=== PATIENT | male | born 1945 | race Caucasian/White ===

== ENCOUNTER 2016-11-17 13:38 | Emergency (ER) | payer OTHER, MEDICARE ==
[2016-11-17 13:52] VITALS: BP 110/77; PULSE 73; TEMP 98; BMI 25.8
[2016-11-17] MEDS ORDERED: KETOROLAC TROMETHAMINE 30 MG/1 ML VIAL IM STA (14:31)
--- NOTE | 2016-11-17 14:44 | PDOC ---
History of Present Illness - General Chief Complaint: Pain Stated Complaint: BACK PAIN Time Seen by Provider: 11/17/16 14:12 History Source: Patient Exam Limitations: No Limitations - History of Present Illness Initial Comments: 11/17/16 14:32 71 yr male with low back pain radiates across lower back for one week. Denies fever or chills, no abd pain or nvd. Pt has history of pancreatitis, sciatica, laminectomy. Pt states pain is worse with sitting down. Pt denies saddle anesthesia, neg bowel or bladder dysfunction, however pt reports constant urinary burning for years dx with BPH not on meds. 11/17/16 14:51 Severity: reports: moderate Pain Location: reports: back Method of Injury: Yes: unknown Loss of Consciousness: no loss of consciousness Associated Symptoms (Fall): denies symptoms Past History - Past Medical History Allergies/Adverse Reactions: Allergies Allergy/AdvReac Type Severity Reaction Status Date / Time No Known Allergies Allergy Verified 11/17/16 13:49 Home Medications: Ambulatory Orders Unobtainable [Unobtainable] 11/17/16 GI Disorders: Yes (rectal prolapse, ) HTN: Yes Hypercholesterolemia: Yes Other medical history: bph,back problems - Psycho/Social/Smoking Cessation Hx Anxiety: No Suicidal Ideation: No Smoking History: Former smoker Have you smoked in the past 12 months: No Information on smoking cessation initiated: No Hx Alcohol Use: No Drug/Substance Use Hx: No Substance Use Type: None Trauma Specific PMHX - Complaint Specific PMHX Arthritis: No Back Injury: No Neck Injury: No Hx Sacro Iliac Joint Dysfunction: No Review of Systems - Review of Systems Able to Perform ROS?: Yes Is the patient limited Lao proficient: No Constitutional: No: Symptoms Reported HEENTM: No: Symptoms Reported Respiratory: No: Symptoms reported Cardiac (ROS): No: Symptoms Reported ABD/GI: No: Symptoms Reported : No: Symptoms Reported Musculoskeletal: Yes: Symptoms Reported, See HPI *Physical Exam - Vital Signs Last Vital Signs Temp Pulse Resp BP Pulse Ox 98.0 F 73 18 110/77 100 11/17/16 13:50 11/17/16 13:50 11/17/16 13:50 11/17/16 13:50 11/17/16 13:50 - Physical Exam General Appearance: Yes: Nourished, Appropriately Dressed HEENT: positive: EOMI, ROSA, TMs Normal Neck: positive: Supple. negative: Tender Respiratory/Chest: positive: Lungs Clear, Normal Breath Sounds. negative: Chest Tender Cardiovascular: positive: Regular Rhythm, Regular Rate Gastrointestinal/Abdominal: positive: Normal Bowel Sounds, Soft. negative: Tender Lymphatic: negative: Adenopathy Musculoskeletal: positive: Normal Inspection. negative: Muscle Spasm, Vertebral Tenderness (well healed laminectomy scar , no rash no vetebral tenderness) Extremity: positive: Normal Capillary Refill, Normal Inspection, Normal Range of Motion Integumentary: positive: Normal Color, Dry, Warm Neurologic: positive: Fully Oriented, Alert, Normal Mood/Affect, Normal Response , Motor Strength 01/23 ED Treatment Course - LABORATORY CBC & Chemistry Diagram: 11/17/16 15:01 11/17/16 16:00 Medical Decision Making - Medical Decision Making 11/17/16 14:53 cc: low back pain for one week denies injury denies radiation no abd pain , neg cough or fever, neg nvd will check labs, urine, toradol for pain . Pt is ambulatory no acute distress. 11/17/16 15:04 11/17/16 16:27 chemistry is pending. Pt states the pain is not relieved with toradol, is requesting a prescription for pain meds to be sent to the [facility] in the [place]. I have discussed that we do not have access to e prescribe to that pharmacy. Pt has refused another pharmacy at this time. Pt drove here, will not be giving narcotic in ER. Labs pending which will possible determine if imaging is to be ordered. 11/17/16 16:42 11/17/16 16:43 pt refused cat scan. Pt states he will follow with his doctor at the [facility] tomorrow. Pt has steady gait vitals stable no distress. Pt states he was hoping he could get an epidural. 11/17/16 16:44 11/17/16 16:54 11/17/16 16:54 *DC/Admit/Observation/Transfer Diagnosis at time of Disposition: Low back pain Qualifiers: Chronicity: chronic Back pain laterality: right Sciatica presence: without sciatica Qualified Code(s): M54.5 - Low back pain; G89.29 - Other chronic pain - Discharge Dispostion Disposition: HOME Condition at time of disposition: Good - Referrals Referrals: Pepe Sellers MD [Staff Physician] - - Patient Instructions Additional Instructions: apply ice every 2hrs for 20 minutes for 2 days [facility] take ibuprofen 800mg every 6hrs for pain (over the counter advil, motrin or ibuprofen )
[2016-11-17] MEDS ORDERED: KETOROLAC TROMETHAMINE 30 MG/1 ML VIAL ONE (14:48)
[2016-11-17 15:29] LABS: URINE APPEARANCE CLEAR; URINE BILIRUBIN NEGATIVE (NEGATIVE); URINE BLOOD NEGATIVE (NEGATIVE); URINE COLOR STRAW; URINE GLUCOSE (UA) NEGATIVE (NEGATIVE); URINE KETONE NEGATIVE (NEGATIVE); URINE LEUK ESTERASE NEGATIVE (NEGATIVE); URINE NITRITE NEGATIVE (NEGATIVE); URINE PROTEIN NEGATIVE (NEGATIVE); URINE UROBILINOGEN NEGATIVE E.U./dl (0.2-1.0)
[2016-11-17 15:33] LABS: MCHC 34.4 g/dl (32.0-35.9); MEAN CELL VOLUME 90.1 fl (80-96); MEAN PLT VOLUME 9.1 fl (7.5-11.1); PLATELET COUNT 193 K/MM3 (134-434); RDW 13.1 % (11.9-15.9); WHITE BLOOD COUNT 5.2 K/mm3 (4.0-10.0)
[2016-11-17 16:41] LABS: ALBUMIN 3.7 g/dl (3.4-5.0); AMYLASE 60 U/L (25-115); ANION GAP 6 (8-16); CO2 32 mmol/L (21-32); GLUCOSE,RANDOM 88 mg/dL (74-106); SGOT/AST 18 U/L (15-37)
[2016-11-17 16:44] LABS: ALK PHOS 73 U/L (45-117); BILIRUBIN,TOTAL 0.4 mg/dL (0.2-1.0); SGPT/ALT 27 U/L (12-78); TOT PROT 6.9 g/dl (6.4-8.2)
== END 2016-11-17 16:59 | disposition home or self-care (01) ==
LOC: JERFT 13:38
PROC: 3E0233Z Introduction of Anti-inflammatory into Muscle, Percutaneous Approach (ICD-10-PCS; principal; 2016-11-17)
DX: M54.5 Low back pain (principal); G89.29 Other chronic pain; I10 Essential (primary) hypertension; E78.00 Pure hypercholesterolemia, unspecified; N40.0 Benign prostatic hyperplasia without lower urinary tract symptoms
CPT/HCPCS: 36415; 80053; 81003; 82150; 83690; 85027; 96372; 99281-25

== ENCOUNTER 2018-07-21 07:05 | Day surgery (SDC) | payer OTHER, MEDICARE ==
[2018-07-19 16:40] VITALS: BMI 24.6
[2018-07-21] MEDS ORDERED: ROPIVACAINE HCL 0.5% 30ML VIAL ONE (07:57)
[2018-07-21] MEDS ORDERED: MIDAZOLAM HCL 2 MG/2 ML SINGLE DOSE VIAL ONE ×2 (08:33)
[2018-07-21] MEDS ORDERED: DEXAMETHASONE SOD PHOSPHATE/PF 10 MG/ML SDV ONE (08:47)
--- NOTE | 2018-07-21 09:13 | HP ---
Satellite [facility] - Chief Complaint Chief Complaint: left shoulder pain History of Present Illness: left shoulder pain, impingement, labral tear History Source: Patient Limitations to Obtaining History: No Limitations - Past Medical History Allergies/Adverse Reactions: Allergies Allergy/AdvReac Type Severity Reaction Status Date / Time No Known Allergies Allergy Verified 07/19/18 16:22 - Current Medications Current Medications: Home Medications Medication Instructions Recorded Amlodipine Besylate [Norvasc -] 2.5 mg PO DAILY 07/19/18 Atenolol/Chlorthalidone 0.5 each PO DAILY 07/19/18 [Atenolol-Chlorthalidone 50-25] Atorvastatin Ca [Lipitor] 40 mg PO HS 07/19/18 Lactulose 10 gm PO BID 07/19/18 Omeprazole 20 mg PO DAILY 07/19/18 Polyethylene Glycol 3350 [Miralax 17 gm PO BID 07/19/18 (For Daily Use) -] Tamsulosin HCl [Flomax] 0.4 mg PO DAILY 07/19/18 Satellite Physical Exam - Physical Examination Vital Signs: Vital Signs Period Temp Pulse Resp BP Sys/Abad Pulse Ox Last 24 Hr 97.6 F 57 124/72 99 General Appearance: Well Nourished ENT: Clear Lung: Clear to auscultation Heart: Regular rate & rhythm Breasts: Soft Abdomen: Soft Extremities: No edema Satellite Impression/Plan - Impression/Plan Impression: left shoulder impingement, labral tear Operative Procedure: left shoulder arthroscopy, decomression, labral repair Date to be Performed: 07/21/18
[2018-07-21] MEDS ORDERED: DESFLURANE GAS 240 ML BOTTLE IH ONE (09:16)
[2018-07-21] MEDS ORDERED: PROPOFOL 20 ML ONE (09:19)
[2018-07-21] MEDS ORDERED: ceFAZolin SODIUM 1 GM VIAL ONE ×2 (09:20)
[2018-07-21] MEDS ORDERED: DEXAMETHASONE SOD PHOSPHATE 4 MG/1 ML VIAL ONE (09:20)
[2018-07-21] MEDS ORDERED: oxyCODONE HCL 5 MG TABLET PO PRN ×2 (09:48)
[2018-07-21] MEDS ORDERED: ONDANSETRON 4 MG/2 ML VIAL IVPUSH PRN (09:48)
[2018-07-21] MEDS ORDERED: LACTATED RINGERS SOLUTION 1,000 ML IV SCH (10:00)
[2018-07-21] MEDS ORDERED: ePHEDrine SULFATE 50 MG/1 ML AMPULE ONE (10:47)
--- NOTE | 2018-07-21 11:27 | OP ---
Operative Note - Note: Operative Date: 07/21/18 Pre-Operative Diagnosis: left shoulder pain, subacromial impingement, ACJ OA, labral tear Operation: left shoulder arthroscopy, subacromial decompression, distal clavicle excision, labral debridment, biceps tenolysis Post-Operative Diagnosis: Same as Pre-op Surgeon: Pepe Sellers General Engineering Teacher: Avi Knight Anesthesiologist/MAT REPAIRER: Citlalli Bowman Anesthesia: General, Local Specimens Removed: shavings Estimated Blood Loss (mls): 20 Drains, Volume Out (mls): 0 Blood Volume Replaced (mls): 0 Fluid Volume Replaced (mls): 700 Operative Report Dictated: Yes
--- NOTE | 2018-07-21 12:01 | OP ---
DATE OF OPERATION: 07/21/2018 PREOPERATIVE DIAGNOSIS: Left shoulder pain and subacromial impingement, possible labral tear. POSTOPERATIVE DIAGNOSIS: Left shoulder subacromial impingement, labral degenerative type tear, and high grade partial biceps tendon tear, acromioclavicular joint arthritis. PROCEDURE: Left shoulder arthroscopy, subacromial decompression, distal clavicle excision, and biceps tenolysis. SURGEON: Ana Luisa Almanza MD SOCIAL WORKER PALLIATIVE CARE: JAX Christensen ADVISORY APPLICATION DEVELOPER: Violette Santos CRNA ANESTHESIA: LMA anesthesia with left interscalene block. DRAINS: None. COMPLICATIONS: None. BLOOD LOSS: Minimal. BLOOD GIVEN: None. FLUID REPLACEMENT: 700 mL. SPECIMENS: Arthroscopic shavings. DESCRIPTION OF PROCEDURE: This patient is a 73-year-old male with a preoperative diagnosis of a left shoulder pain, subacromial impingement, possible rotator cuff tear, possible labral tear. After understanding the potential risks, complications, alternatives and benefits of surgery versus nonsurgical treatment, the patient elected to undergo this procedure. Patient was brought to the operating room, peripheral IV placed, and IV sedation given. One gram of IV Ancef was given. Left interscalene block was performed. LMA anesthesia was induced. He was placed in the beach-chair position with ample padding throughout. The left upper extremity was prepped and draped in sterile fashion. The bony landmarks were marked out with a marking pen. Posterior portal was established. A diagnostic glenohumeral arthroscopy was performed. Patient was seen to have a tremendous amount of degenerative type fraying of the labrum and the biceps tendon. The anterior portal was established, and under direct visualization, the spinal needle and the Green cannula were introduced into the glenohumeral joint, and a shaver was used to debride the torn portion of the biceps tendon and the frayed labrum. Once this was done, this revealed that about 80% of the biceps tendon was torn and the rest frayed. Therefore, biceps tenolysis was performed with the ArthroCare Wand and the shaver. Once the release of the biceps tendon was done, the labrum was extensively probed. It was just degenerative. There was no yonathan tear. Therefore, this area was debrided, as well, cleaned out with the ArthroCare Wand. The glenohumeral joint itself looked good. There was no osteoarthritis. The undersurface of the rotator cuff looked perfect. There was no tear. Next, our attention was turned to subacromial space. Patient had a tremendous amount of inflammatory bursitis. Lateral portal was established under direct visualization. A soft tissue bursectomy was performed / extensive debridement performed with an ArthroCare Wand and a straight shaver. This revealed a very large, bony subacromial spur and a moderate-sized distal subclavicular spur. Both spurs were taken down with a 5.5-mm oval bur and fine-tuned in reverse and cleaned up with the shaver. All soft tissue and bony debris were removed. Photographs were taken of the decompression. It was quite adequate. The arm was put through a full range of motion. There was no point of impingement. The top surface of the rotator cuff was directly visualized. There was no tear. The area was copiously irrigated and washed out. All instrumentation and debris and excess saline were removed. The arthroscopy portals were closed with 3-0 nylon sutures. The area was then washed and dried, covered with Aquacel dressing. Patient was extubated. Total operative repair was about 50 minutes. He was put into a sling and brought down out of the beach-chair position. He was stable throughout the case, and he was brought to the ambulatory recovery room in stable condition. ANA LUISA ALMANZA M.D. [id number]
[2018-07-21 13:55] VITALS: BP 115/67; PULSE 68; TEMP 97.3
--- NOTE | 2018-07-22 17:01 | PATH ---
Surgical Pathology Report Patient Name: JUSTINO YADAV Med. Rec. #: [id number] /Age/Gender: 1945 (Age: 73) / M Account: [id number] Location: [facility] SUR[facility] Taken: 07/21/2018 Received: 07/21/2018 Reported: 07/22/2018 Physicians: Pepe Sellers M.D. Specimen(s) Received LEFT SHOULDER SHAVINGS Clinical History Left shoulder tear Final Diagnosis LEFT SHOULDER SHAVINGS: FRAGMENTS OF SYNOVIAL AND FIBROCARTILAGINOUS TISSUE WITH DEGENERATIVE CHANGE. SEPARATE SKELETAL MUSCLE WITH NO DIAGNOSTIC ABNORMALITIES. Electronically Signed Ministerio Reynoso M.D. Gross Description Received in formalin labeled "left shoulder shavings," is a 2.5 x 2.0 x 0.3 cm aggregate of jay-yellow soft tissue fragments. Hyperion Analyst tissue is submitted in one cassette.
== END 2018-07-21 13:45 | disposition home or self-care (01) ==
LOC: JASU-SURG 07:05
PROVIDERS: ATTEND Orthopaedic Surgery
PROC: 0LN24ZZ Release Left Shoulder Tendon, Percutaneous Endoscopic Approach (ICD-10-PCS; 2018-07-21)
PROC: 0RBK4ZZ Excision of Left Shoulder Joint, Percutaneous Endoscopic Approach (ICD-10-PCS; principal; 2018-07-21 09:00)
PROC: 0PBB4ZZ Excision of Left Clavicle, Percutaneous Endoscopic Approach (ICD-10-PCS; 2018-07-21 09:00)
DX: M75.42 Impingement syndrome of left shoulder (principal); S43.492A Other sprain of left shoulder joint, initial encounter; S46.212A Strain of muscle, fascia and tendon of other parts of biceps, left arm, initial encounter; X58.XXXA Exposure to other specified factors, initial encounter; Y93.9 Activity, unspecified; Y92.9 Unspecified place or not applicable; Y99.9 Unspecified external cause status; M13.812 Other specified arthritis, left shoulder
CPT/HCPCS: 94760

== ENCOUNTER 2021-06-26 08:25 | Emergency (ER) | payer OTHER, MEDICARE ==
[2021-06-26 08:39] VITALS: BMI 27.4
[2021-06-26 10:06] LABS: EPI CELLS 2 /uL (0-25.1); HYALINE CASTS 1 /uL (0-3.1); URINE APPEARANCE CLOUDY; URINE BACTERIA 4 /uL (0-1359); URINE BILIRUBIN NEGATIVE (NEGATIVE); URINE COLOR YELLOW; URINE GLUCOSE (UA) NEGATIVE (NEGATIVE); URINE KETONE NEGATIVE (NEGATIVE); URINE LEUK ESTERASE 1+ (NEGATIVE); URINE NITRITE NEGATIVE (NEGATIVE); URINE PROTEIN 1+ (NEGATIVE); URINE RBC 31 /uL (0-23.9); URINE UROBILINOGEN 0.2 mg/dL (0.2-1.0); URINE WBC 41 /uL (0-25.8)
[2021-06-26 10:57] LABS: BASO % 1.5 % (0-2.0); EOS % 5.9 % (0-4.5); HEMATOCRIT 44.6 % (35.4-49); HEMOGLOBIN 15.1 GM/dL (11.7-16.9); LYMPH % 15.8 % (8-40); MCH 30.6 pg (25.7-33.7); MCHC 33.7 g/dl (32.0-35.9); MEAN CELL VOLUME 90.8 fl (80-96); MEAN PLT VOLUME 9.2 fl (7.5-11.1); MONO % 9.5 % (3.8-10.2); NEUT % 67.3 % (42.8-82.8); PLATELET COUNT 195 10^3/uL (134-434); RBC 4.91 M/mm3 (4.00-5.60); RDW 13.3 % (11.9-15.9); WHITE BLOOD COUNT 4.9 K/mm3 (4.0-10.0)
[2021-06-26 11:03] LABS: CALCIUM 9.4 mg/dL (8.5-10.1)
[2021-06-26 11:04] LABS: ALBUMIN 4.3 g/dl (3.4-5.0); BLOOD UREA NITROGEN 17.2 mg/dL (7-18)
[2021-06-26 11:07] LABS: CREATININE 0.9 mg/dL (0.55-1.3)
[2021-06-26 11:09] LABS: BILIRUBIN,TOTAL 0.6 mg/dL (0.2-1); TOT PROT 7.7 g/dl (6.4-8.2)
[2021-06-26 12:51] VITALS: BP 149/87; PULSE 60; TEMP 98.2
[2021-06-26] MEDS ORDERED: SULFAMETHOXAZOLE/TRIMETHOPRIM 800MG/160MG D.S. TABLET PO ONE (13:39)
[2021-06-26] MEDS ORDERED: SULFAMETHOXAZOLE/TRIMETHOPRIM 800MG/160MG D.S. TABLET ONE (14:14)
== END 2021-06-26 14:40 | disposition home or self-care (01) ==
LOC: JER 08:25
DX: N30.01 Acute cystitis with hematuria (principal)
CPT/HCPCS: 36415; 74176-TC; 80053; 81003; 84153; 85025; 87086; 99284-25

== ENCOUNTER 2021-07-06 03:16 | Emergency (ER) | payer OTHER, MEDICARE ==
[2021-07-06 03:38] VITALS: BMI 22.8
[2021-07-06] MEDS ORDERED: LACTATED RINGERS SOLUTION 1000 ML INFUS.BAG IV ONE (03:42)
[2021-07-06] MEDS ORDERED: FAMOTIDINE 20 MG/50 ML IVPB 20 MG/50 ML MG IVPB ONE ×2 (03:42→03:46)
[2021-07-06] MEDS ORDERED: ONDANSETRON 4 MG/2 ML VIAL IVPUSH ONE (03:42)
[2021-07-06] MEDS ORDERED: ACETAMINOPHEN 1000 MG/100 ML VIAL IVPB ONE (03:42)
[2021-07-06] MEDS ORDERED: ONDANSETRON 4 MG/2 ML VIAL ONE (03:46)
[2021-07-06] MEDS ORDERED: ACETAMINOPHEN INJECTION 100 ML IVPB ONE (03:46)
[2021-07-06 04:02] LABS: BASO % 1.4 % (0-2.0); EOS % 7.3 % (0-4.5); HEMATOCRIT 39.5 % (35.4-49); HEMOGLOBIN 13.4 GM/dL (11.7-16.9); LYMPH % 25.2 % (8-40); MCH 30.4 pg (25.7-33.7); MCHC 33.8 g/dl (32.0-35.9); MEAN CELL VOLUME 89.9 fl (80-96); MONO % 11.7 % (3.8-10.2); NEUT % 54.4 % (42.8-82.8); PLATELET COUNT 186 10^3/uL (134-434); RBC 4.39 M/mm3 (4.00-5.60); RDW 13.3 % (11.9-15.9); WHITE BLOOD COUNT 4.4 K/mm3 (4.0-10.0)
[2021-07-06 04:27] LABS: BLOOD UREA NITROGEN 16.5 mg/dL (7-18); CALCIUM 8.7 mg/dL (8.5-10.1); CO2 22 mmol/L (21-32); GLUCOSE,RANDOM 83 mg/dL (74-106); LIPASE 160 U/L (73-393)
[2021-07-06 04:29] LABS: CREATININE 1.2 mg/dL (0.55-1.3); SGOT/AST 23 U/L (15-37); SGPT/ALT 21 U/L (13-61)
[2021-07-06 04:32] LABS: BILIRUBIN,TOTAL 0.5 mg/dL (0.2-1); TOT PROT 6.6 g/dl (6.4-8.2)
[2021-07-06 04:33] LABS: ALK PHOS 68 U/L (45-117)
[2021-07-06 05:07] LABS: ALBUMIN 3.4 g/dl (3.4-5.0); ANION GAP 9 MMOL/L (8-16); CHLORIDE 107 mmol/L (98-107); SODIUM 138 mmol/L (136-145)
[2021-07-06 05:44] VITALS: BP 125/72; PULSE 64; TEMP 97.9
[2021-07-06 06:01] LABS: EPI CELLS 0 /uL (0-25.1); HYALINE CASTS 0 /uL (0-3.1); PH,URINE 7.5 (5.0-8.0); URINE APPEARANCE CLEAR; URINE BACTERIA 17 /uL (0-1359); URINE BILIRUBIN NEGATIVE (NEGATIVE); URINE COLOR YELLOW; URINE GLUCOSE (UA) NEGATIVE (NEGATIVE); URINE KETONE NEGATIVE (NEGATIVE); URINE LEUK ESTERASE TRACE (NEGATIVE); URINE NITRITE NEGATIVE (NEGATIVE); URINE PROTEIN NEGATIVE (NEGATIVE); URINE RBC 3 /uL (0-23.9); URINE UROBILINOGEN 0.2 mg/dL (0.2-1.0); URINE WBC 12 /uL (0-25.8)
== END 2021-07-06 06:50 | disposition home or self-care (01) ==
LOC: JER 03:16
PROC: 3E0333Z Introduction of Anti-inflammatory into Peripheral Vein, Percutaneous Approach (ICD-10-PCS; principal; 2021-07-06)
PROC: 3E033GC Introduction of Other Therapeutic Substance into Peripheral Vein, Percutaneous Approach (ICD-10-PCS; 2021-07-06)
PROC: 3E033GC Introduction of Other Therapeutic Substance into Peripheral Vein, Percutaneous Approach (ICD-10-PCS; 2021-07-06)
DX: R10.84 Generalized abdominal pain (principal)
CPT/HCPCS: 36415; 71046-TC-FY; 80053; 81003; 82550; 82553; 83690; 84484; 85025; 87086; 93005; 93010; 99285-25; J0131

== ENCOUNTER 2021-10-24 05:13 | Emergency (ER) | payer OTHER, MEDICARE ==
[2021-10-24 05:31] VITALS: BP 152/98; PULSE 80; TEMP 98.4; BMI 25.8
== END 2021-10-24 06:32 | disposition home or self-care (01) ==
LOC: JER 05:13
DX: R09.81 Nasal congestion (principal); Z11.52 Encounter for screening for COVID-19
CPT/HCPCS: 99283-25; C9803; U0003; U0005

== ENCOUNTER 2022-05-10 04:29 | Emergency (ER) | payer OTHER, MEDICARE ==
[2022-05-10 04:48] VITALS: BP 131/87; PULSE 67; RESP 16; TEMP 98.3; BMI 28.6
[2022-05-10] MEDS ORDERED: MAG HYDROX/AL HYDROX/SIMETH -MYLANTA- ORAL SUSPENSION PO ONE (04:59)
[2022-05-10] MEDS ORDERED: ACETAMINOPHEN 1000 MG/100 ML BAG IVPB ONE (04:59)
[2022-05-10] MEDS ORDERED: FAMOTIDINE 20 MG/50 ML IVPB 20 MG/50 ML MG IVPB ONE ×2 (04:59→05:18)
[2022-05-10] MEDS ORDERED: LACTATED RINGERS SOLUTION 1000 ML INFUS.BAG IV ONE (04:59)
[2022-05-10] MEDS ORDERED: MAG HYDROX/AL HYDROX/SIMETH 30 ML UNIT-DOSE CUP ONE (05:17)
[2022-05-10 05:58] LABS: BASO % 0.9 % (0-2.0); EOS % 7.5 % (0-4.5); HEMATOCRIT 41.1 % (35.4-49); HEMOGLOBIN 13.6 GM/dL (11.7-16.9); LYMPH % 16.7 % (8-40); MCHC 33.1 g/dl (32.0-35.9); MEAN CELL VOLUME 90.6 fl (80-96); MEAN PLT VOLUME 10.2 fl (7.5-11.1); MONO % 10.2 % (3.8-10.2); NEUT % 64.7 % (42.8-82.8); PLATELET COUNT 138 10^3/uL (134-434); RBC 4.53 M/mm3 (4.00-5.60); RDW 14.1 % (11.9-15.9); WHITE BLOOD COUNT 4.8 K/mm3 (4.0-10.0)
[2022-05-10 06:41] LABS: PH,URINE 6.5 (5.0-8.0); URINE APPEARANCE CLEAR; URINE BILIRUBIN NEGATIVE (NEGATIVE); URINE COLOR YELLOW; URINE GLUCOSE (UA) NEGATIVE (NEGATIVE); URINE KETONE NEGATIVE (NEGATIVE); URINE LEUK ESTERASE NEGATIVE (NEGATIVE); URINE NITRITE NEGATIVE (NEGATIVE); URINE PROTEIN TRACE (NEGATIVE); URINE UROBILINOGEN 0.2 mg/dL (0.2-1.0)
[2022-05-10 08:33] LABS: ALBUMIN 3.3 g/dl (3.4-5.0); BLOOD UREA NITROGEN 17.8 mg/dL (7-18); CALCIUM 8.6 mg/dL (8.5-10.1)
[2022-05-10 08:36] LABS: CREATININE 0.9 mg/dL (0.55-1.3)
[2022-05-10 08:38] LABS: BILIRUBIN,TOTAL 0.7 mg/dL (0.2-1); TOT PROT 5.7 g/dl (6.4-8.2)
== END 2022-05-10 09:27 | disposition home or self-care (01) ==
LOC: JER 04:29
PROC: 3E033GC Introduction of Other Therapeutic Substance into Peripheral Vein, Percutaneous Approach (ICD-10-PCS; principal; 2022-05-10)
DX: R10.9 Unspecified abdominal pain (principal); M54.50 Low back pain, unspecified
CPT/HCPCS: 0241U-QW; 36415; 71045-TC-FY; 80053; 81003; 83605; 83690; 84484; 85025; 87086; 93005; 93010; 99285-25

== ENCOUNTER 2022-05-16 05:03 | Emergency (ER) | payer OTHER, MEDICARE ==
[2022-05-16 05:21] VITALS: BP 150/95; PULSE 58; RESP 18; TEMP 98.3; BMI 25.0
[2022-05-16] MEDS ORDERED: MAG HYDROX/AL HYDROX/SIMETH -MYLANTA- ORAL SUSPENSION PO ONE (05:37)
[2022-05-16] MEDS ORDERED: FAMOTIDINE 20 MG/50 ML IVPB 20 MG/50 ML MG IVPB ONE ×2 (05:37→06:31)
[2022-05-16] MEDS ORDERED: ACETAMINOPHEN 1000 MG/100 ML BAG IVPB ONE (05:44)
[2022-05-16] MEDS ORDERED: ACETAMINOPHEN INJECTION 100 ML IVPB ONE (06:31)
[2022-05-16] MEDS ORDERED: MAG HYDROX/AL HYDROX/SIMETH 30 ML UNIT-DOSE CUP ONE (06:31)
== END 2022-05-16 07:05 | disposition home or self-care (01) ==
LOC: JER 05:03
PROC: 3E033GC Introduction of Other Therapeutic Substance into Peripheral Vein, Percutaneous Approach (ICD-10-PCS; principal; 2022-05-16)
DX: R10.84 Generalized abdominal pain (principal); R09.82 Postnasal drip
CPT/HCPCS: 0241U-QW; 74177-TC; 99285-25; Q9967

== ENCOUNTER 2022-08-14 02:06 | Emergency (ER) | payer OTHER, MEDICARE ==
[2022-08-14 02:19] VITALS: BP 168/93; PULSE 67; RESP 18; TEMP 97.9; BMI 25.0
[2022-08-14] MEDS ORDERED: FAMOTIDINE 20 MG TABLET PO ONE (02:59)
[2022-08-14] MEDS ORDERED: SUCRALFATE 1 GM TABLET (FP) PO ONE (02:59)
[2022-08-14] MEDS ORDERED: MAG HYDROX/AL HYDROX/SIMETH -MYLANTA- ORAL SUSPENSION PO ONE (02:59)
[2022-08-14] MEDS ORDERED: FAMOTIDINE 20 MG TABLET ONE (03:27)
[2022-08-14] MEDS ORDERED: SUCRALFATE 1 GM TABLET (FP) ONE (03:27)
[2022-08-14] MEDS ORDERED: MAG HYDROX/AL HYDROX/SIMETH 30 ML UNIT-DOSE CUP ONE (03:28)
[2022-08-14 03:31] LABS: PH,URINE 7.5 (5.0-8.0); URINE APPEARANCE CLEAR; URINE BILIRUBIN NEGATIVE (NEGATIVE); URINE COLOR YELLOW; URINE GLUCOSE (UA) NEGATIVE (NEGATIVE); URINE KETONE NEGATIVE (NEGATIVE); URINE LEUK ESTERASE NEGATIVE (NEGATIVE); URINE NITRITE NEGATIVE (NEGATIVE); URINE PROTEIN NEGATIVE (NEGATIVE); URINE UROBILINOGEN 0.2 mg/dL (0.2-1.0)
[2022-08-14 04:51] LABS: HEMATOCRIT 41.4 % (35.4-49); HEMOGLOBIN 13.9 GM/dL (11.7-16.9); LYMPH % 11.6 % (8-40); MCH 30.6 pg (25.7-33.7); MCHC 33.5 g/dl (32.0-35.9); MEAN CELL VOLUME 91.5 fl (80-96); MEAN PLT VOLUME 9.1 fl (7.5-11.1); MONO % 9.7 % (3.8-10.2); NEUT % 73.7 % (42.8-82.8); PLATELET COUNT 161 10^3/uL (134-434); RBC 4.52 M/mm3 (4.00-5.60); RDW 13.4 % (11.9-15.9); WHITE BLOOD COUNT 7.4 K/mm3 (4.0-10.0)
[2022-08-14 05:03] LABS: INR 1.05 (0.83-1.09); PROTHROMBIN TIME (PATIENT) 12.1 SEC (9.7-13.0)
[2022-08-14 05:06] LABS: ACTIVATED PTT 28.6 SECONDS (25.2-36.5); BLOOD UREA NITROGEN 18.9 mg/dL (7-18); CALCIUM 9.3 mg/dL (8.5-10.1)
[2022-08-14 05:09] LABS: CREATININE 0.9 mg/dL (0.55-1.3)
[2022-08-14 05:11] LABS: BILIRUBIN,TOTAL 0.5 mg/dL (0.2-1); TOT PROT 6.9 g/dl (6.4-8.2)
== END 2022-08-14 06:09 | disposition left against medical advice (07) ==
LOC: JER 02:06
DX: R10.13 Epigastric pain (principal); N50.811 Right testicular pain
CPT/HCPCS: 36415; 80053; 81003; 83690; 84484; 85025; 85610; 85730; 86850; 86900; 86901; 87086; 99284-25

== ENCOUNTER 2022-10-22 03:44 | Emergency (ER) | payer OTHER, MEDICARE ==
[2022-10-22 04:19] VITALS: BP 160/83; PULSE 71; RESP 18; TEMP 97.6; BMI 23.9
== END 2022-10-22 04:13 | disposition home or self-care (01) ==
LOC: JER 03:44
DX: Z01.30 Encounter for examination of blood pressure without abnormal findings (principal)
CPT/HCPCS: 99281-25

== ENCOUNTER 2023-08-14 01:13 | Emergency (ER) | payer OTHER, MEDICARE ==
[2023-08-14 01:26] VITALS: BP 169/98; PULSE 81; RESP 18; TEMP 97.9; BMI 23.6
[2023-08-14 01:46] LABS: URINE APPEARANCE TURBID; URINE BILIRUBIN NEGATIVE (NEGATIVE); URINE COLOR YELLOW; URINE GLUCOSE (UA) NEGATIVE (NEGATIVE); URINE KETONE NEGATIVE (NEGATIVE); URINE LEUK ESTERASE NEGATIVE (NEGATIVE); URINE NITRITE NEGATIVE (NEGATIVE); URINE PROTEIN NEGATIVE (NEGATIVE); URINE UROBILINOGEN 0.2 mg/dL (0.2-1.0)
[2023-08-14] MEDS ORDERED: ACETAMINOPHEN 1000 MG/100 ML BAG IVPB ONE (02:00)
[2023-08-14] MEDS ORDERED: ACETAMINOPHEN INJECTION 100 ML IVPB ONE (02:08)
[2023-08-14 02:33] LABS: BASO % 1.4 % (0-2.0); HEMATOCRIT 38.9 % (35.4-49); HEMOGLOBIN 13.4 GM/dL (11.7-16.9); LYMPH % 18.4 % (8-40); MCH 30.7 pg (25.7-33.7); MCHC 34.3 g/dl (32.0-35.9); MEAN CELL VOLUME 89.6 fl (80-96); MEAN PLT VOLUME 9.8 fl (7.5-11.1); MONO % 12.5 % (3.8-10.2); NEUT % 55.7 % (42.8-82.8); PLATELET COUNT 169 10^3/uL (134-434); RBC 4.34 M/mm3 (4.00-5.60); WHITE BLOOD COUNT 5.3 K/mm3 (4.0-10.0)
[2023-08-14 02:50] LABS: POTASSIUM 4.6 mmol/L (3.5-5.1)
[2023-08-14 02:53] LABS: ALBUMIN 3.5 g/dl (3.4-5.0); BLOOD UREA NITROGEN 30.8 mg/dL (7-18)
[2023-08-14 02:56] LABS: CREATININE 1.2 mg/dL (0.55-1.3)
[2023-08-14 02:58] LABS: BILIRUBIN,TOTAL 0.4 mg/dL (0.2-1); TOT PROT 6.8 g/dl (6.4-8.2)
== END 2023-08-14 04:12 | disposition home or self-care (01) ==
LOC: JER 01:13
PROC: 3E033NZ Introduction of Analgesics, Hypnotics, Sedatives into Peripheral Vein, Percutaneous Approach (ICD-10-PCS; principal; 2023-08-14)
DX: R10.30 Lower abdominal pain, unspecified (principal); R30.0 Dysuria; R35.0 Frequency of micturition; R11.0 Nausea
CPT/HCPCS: 36415; 80053; 81003; 83690; 85025; 87086; 99284-25

== ENCOUNTER 2023-11-05 06:20 | Emergency (ER) | payer OTHER, MEDICARE ==
[2023-11-05 06:31] VITALS: BMI 23.6
[2023-11-05] MEDS ORDERED: DEXAMETHASONE 4 MG TABLET (FP) ONE (08:13)
[2023-11-05] MEDS ORDERED: ALBUTEROL SO4 2.5/IPRATROPIUM 0.5 INH SOL 3 ML VIAL.NEB. NEB ONE (08:13)
[2023-11-05 08:20] LABS: HEMATOCRIT 41.9 % (35.4-49); HEMOGLOBIN 13.8 GM/dL (11.7-16.9); MCHC 32.9 g/dl (32.0-35.9); MEAN CELL VOLUME 91.3 fl (80-96); MEAN PLT VOLUME 9.1 fl (7.5-11.1); PLATELET COUNT 175 10^3/uL (134-434); RBC 4.59 M/mm3 (4.00-5.60); RDW 13.5 % (11.9-15.9); WHITE BLOOD COUNT 4.2 K/mm3 (4.0-10.0)
[2023-11-05] MEDS: ALBUTEROL SO4 2.5/IPRATROPIUM 0.5 INH SOL 3 ML VIAL.NEB. NEB ONE (08:20)
[2023-11-05] MEDS: DEXAMETHASONE 4 MG TABLET (FP) PO ONE (08:20)
[2023-11-05 08:38] LABS: POTASSIUM 4.3 mmol/L (3.5-5.1)
[2023-11-05 08:41] LABS: ALBUMIN 3.8 g/dl (3.4-5.0); BLOOD UREA NITROGEN 18.6 mg/dL (7-18)
[2023-11-05 08:44] LABS: CREATININE 1.1 mg/dL (0.55-1.3)
[2023-11-05 08:46] LABS: BILIRUBIN,TOTAL 0.5 mg/dL (0.2-1); TOT PROT 6.9 g/dl (6.4-8.2)
[2023-11-05 08:58] LABS: MAGNESIUM 2.3 mg/dL (1.8-2.4)
[2023-11-05] MEDS: SODIUM CHLORIDE 0.9% 500 ML INFUS.BAG IV ONE (09:01)
[2023-11-05 09:10] VITALS: BP 135/80; PULSE 103; RESP 20; TEMP 98.3
[2023-11-05 09:34] LABS: ANISOCYTOSIS 0; MACROCYTOSIS 0
== END 2023-11-05 09:32 | disposition home or self-care (01) ==
LOC: JER 06:20
PROC: 3E0F7GC Introduction of Other Therapeutic Substance into Respiratory Tract, Via Natural or Artificial Opening (ICD-10-PCS; principal; 2023-11-05)
DX: R05.9 Cough, unspecified (principal); R68.83 Chills (without fever); R06.02 Shortness of breath; U07.1 COVID-19; R53.83 Other fatigue; M79.10 Myalgia, unspecified site; R07.81 Pleurodynia
CPT/HCPCS: 0241U-QW; 36415; 80053; 83735; 84484; 85025; 85379; 93005; 93010; 99284-25